=== PATIENT | male | born 1935 | race Caucasian/White ===

== ENCOUNTER 2019-02-16 10:14 | Outpatient (CLI) | payer OTHER ==
[~2019-02-16 10:14] MED LIST: ACTOS15 MG; AMLODIPINE BESY10 MG; METFORMIN HCL500 MG; OMEPRAZOLE20 MG; ZANTAC300 MG
== END 2019-02-16 16:56 | disposition home or self-care (01) ==
LOC: SONOGRAMA 10:14
DX: K40.90 Unilateral inguinal hernia, without obstruction or gangrene, not specified as recurrent (principal)

== ENCOUNTER 2024-09-20 13:48 | Outpatient (CLI) | payer OTHER | END 2024-09-20 13:55 | disposition home or self-care (01) | LOC: MRI 13:48 | PROVIDERS: ATTEND Psychiatry & Neurology Clinical Neurophysiology | DX: M54.16 Radiculopathy, lumbar region (principal) | CPT/HCPCS: 72148 ==

== ENCOUNTER 2025-08-06 12:01 | Outpatient (CLI) | payer OTHER | END 2025-08-06 14:31 | disposition home or self-care (01) | LOC: EKG 12:01 | PROVIDERS: ATTEND Internal Medicine Cardiovascular Disease | DX: I10 Essential (primary) hypertension (principal) ==